=== PATIENT | female | born 1950 | race Two or more races ===

== ENCOUNTER 2021-08-11 18:48 | Emergency (ER) | payer MEDICARE ==
[~2021-08-11] VITALS: Ht 154.9 cm; Wt 113.4 kg
[2021-08-11] MEDS ORDERED: IBUP800T27 PO (22:31)
[2021-08-12] VITALS: BP 150/88
== END 2021-08-12 01:11 | disposition home or self-care (01) ==
LOC: ER 18:48
DX: S93.401A Sprain of unspecified ligament of right ankle, initial encounter (principal); E11.9 Type 2 diabetes mellitus without complications; I10 Essential (primary) hypertension; Z90.710 Acquired absence of both cervix and uterus; X58.XXXA Exposure to other specified factors, initial encounter; Y93.89 Activity, other specified; Y92.89 Other specified places as the place of occurrence of the external cause; Y99.8 Other external cause status
CPT/HCPCS: 73610; 73630